=== PATIENT | male | born 1980 | race Caucasian/White ===

== ENCOUNTER 2018-10-25 07:31 | Emergency (ER) | payer OTHER ==
[~2018-10-25] VITALS: Ht 185.4 cm; Wt 79.4 kg
[2018-10-25 08:24] LABS: ABSOLUTE NEUTROPHILS 16.8 thou/uL (1.4-8.2); BASOPHILS 0.5 % (0.0-2.0); EOSINOPHILS 0.1 % (0.0-3.0); HEMATOCRIT 43.3 % (42.0-52.0); MCH 29.7 pg (26.0-34.0); MCHC 34.6 g/dL (28.0-37.0); MCV 85.9 fL (80.0-100.0); MONOCYTES 6.2 % (1.0-8.0); PLATELET COUNT 270 thou/uL (150-400); POLYS 85.2 % (36.0-66.0); RBC 5.04 mil/uL (4.50-6.00); RDW 14.5 % (10.5-14.5); WBC 19.7 thou/uL (4.0-11.0)
[2018-10-25] MEDS ORDERED: VENTOLIN HFA 1818 GM INH (08:26)
[2018-10-25] MEDS ORDERED: ALBUTEROL2.5 MG/0.5 INH (08:27)
[2018-10-25] MEDS ORDERED: DULERA 200 MCG/13 GM INH (08:28)
[2018-10-25] MEDS ORDERED: PROZAC10 MG PO (08:28)
[2018-10-25 08:33] LABS: ANION GAP 12 mmol/L (7-16); BUN 20 mg/dL (7-18); CALCIUM 9.7 mg/dL (8.5-10.1); CHLORIDE 98 mmol/L (98-107); CO2 24 mmol/L (21-32); GLUCOSE 148 mg/dL (74-106); POTASSIUM 3.7 mmol/L (3.5-5.1); SODIUM 134 mmol/L (136-145)
[2018-10-25 08:41] LABS: LIPASE 2425 U/L (73-393); SGOT 56 U/L (15-37); SGPT 50 U/L (30-65); TOTAL PROTEIN 7.4 g/dL (6.4-8.2); TROPONIN-I <0.06 ng/mL (<0.06)
[2018-10-25 09:58] LABS: URINE BILIRUBIN NEGATIVE (Negative); URINE BLOOD TRACE (Negative); URINE CLARITY CLEAR; URINE COLOR YELLOW; URINE GLUCOSE-RANDOM* NEGATIVE (Negative); URINE KETONES NEGATIVE (Negative); URINE LEUKOCYTES-REFLEX NEGATIVE (Negative); URINE NITRITE-REFLEX NEGATIVE (Negative); URINE PROTEIN (DIPSTICK) TRACE (Negative); URINE SPECIFIC GRAVITY 1.015 (1.005-1.035); URINE UROBILINOGEN 0.2 E.U./dl (0.2-1.0)
[2018-10-25] MEDS ORDERED: ZOFRAN ODT4 MG DISSOLVE (10:30)
[2018-10-25] MEDS ORDERED: TRAMADOL 50 MG50 MG PO (10:30)
[2018-10-25 11:31] VITALS: BP 152/74
--- NOTE | 2018-10-25 16:59 | EKG ---
[place] [address] [facility] [place] [address] ELECTROCARDIOGRAM REPORT Name: MARY GRACE HERMAN Room #: DEP Connie#: [id number] ������������������ Admission: 10/25/18 ������������������ Attend Phys: Discharge: 10/25/18 ������������������ Date of : 82 Report #: [id number] ����������������������������������������������������������������� [id number] THIS REPORT FOR: //name// [facility] ED Test Date: 2018-10-25 Test Time: 08:38:08 Pat Name: MARY GRACE HERMAN Department: Room: Gender: Investment Officer: TJOHKATIE : 1980 Requested By: Neal Dunn Order Number: [id number] MD: Sean Fernandez Measurements Intervals Vera Rate: 65 P: 55 MO: 121 QRS: 70 QRSD: 79 T: 68 QT: 404 QTc: 421 Interpretive Statements Sinus rhythm Sinus arrhythmia No previous ECG available for comparison Electronically Signed On 10-25-2018 16:59:16 CDT by Sean Fernandez [email or web address] ��������������������������������������������� <ELECTRONICALLY SIGNED> ���������������������������������������� By: Sean Fernandez MD, [facility] ��������������������������������������������� 10/25/18 1659 0838 0838 Sean Fernandez MD, FAC /EPI
== END 2018-10-25 11:05 | disposition home or self-care (01) ==
LOC: ER 07:31
PROVIDERS: Emergency Medicine
DX: K85.90 Acute pancreatitis without necrosis or infection, unspecified (principal); R11.2 Nausea with vomiting, unspecified; Z88.8 Allergy status to other drugs, medicaments and biological substances

== ENCOUNTER 2019-01-08 19:05 | Inpatient (IN) | payer OTHER ==
[~2019-01-08] VITALS: Ht 185.4 cm; Wt 86.6 kg
[~2019-01-08 19:05] MED LIST: ALBUTEROL2.5 MG/0.5 INH; DULERA 200 MCG/13 GM INH; PROZAC10 MG PO; TRAMADOL 50 MG50 MG PO; VENTOLIN HFA 1818 GM INH; ZOFRAN ODT4 MG DISSOLVE
[2019-01-08 19:25] VITALS: BP 149/81
[2019-01-08 21:30] VITALS: BP 148/104
[2019-01-08 22:40] LABS: HEMATOCRIT 41.2 % (42.0-52.0); HEMOGLOBIN 14.3 gm/dL (14.0-18.0); MCHC 34.8 g/dL (28.0-37.0); MCV 86.1 fL (80.0-100.0); RBC 4.78 mil/uL (4.50-6.00); RDW 13.7 % (10.5-14.5); WBC 10.6 thou/uL (4.0-11.0)
[2019-01-08 22:44] LABS: CALCIUM 8.3 mg/dL (8.5-10.1); CREATININE 0.9 mg/dL (0.7-1.3); POTASSIUM 4.2 mmol/L (3.5-5.1)
[2019-01-09 06:38] VITALS: BP 134/56
[2019-01-09 08:18] VITALS: BP 146/91
--- NOTE | 2019-01-09 09:53 | EKG ---
[address] [address] ELECTROCARDIOGRAM REPORT Name: MARY GRACE HERMAN Room #: 428-P ADM IN M.R.#: [id number] ������������������ Admission: 01/08/19 ������������������ Attend Phys: Garland Hernandez MD Discharge: ������������������ Date of : 82 Report #: [id number] ����������������������������������������������������������������� [id number] THIS REPORT FOR: //name// [facility] ED Test Date: 2019-01-08 Test Time: 22:09:39 Pat Name: MARY GRACE HERMAN Department: Room: 428 Gender: M Lacer And Tier: Kat De Leon : 1980 Requested By: Kenya Pascal Order Number: [id number] MD: Sean Fernandez Measurements Intervals [place] Rate: 90 P: 63 [place]: 142 QRS: 70 QRSD: 95 T: 73 QT: 361 QTc: 442 Interpretive Statements Sinus rhythm No significant abnormality Compared to ECG 10/25/2018 08:38:08 Sinus arrhythmia no longer present Electronically Signed On 01-09-2019 9:52:59 CDT by Sean Fernandez [email or web address] ��������������������������������������������� <ELECTRONICALLY SIGNED> ���������������������������������������� By: Sean Fernandez MD, [facility] ��������������������������������������������� 01/09/19 0952 08 08 Sean Fernandez MD, [facility] /EPI
--- NOTE | 2019-01-09 09:58 | NUR ---
PT RESTING IN BED ALERT XS 4. GIVEN BREAKFAST AND WILL DO ADMIT PAPERWORK AFTER HE EATS. GIRLFRIEND AT BEDSIDE.
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
[2019-01-09 17:54] VITALS: BP 137/81
[2019-01-09 21:15] VITALS: BP 135/73
--- NOTE | 2019-01-10 02:19 | NUR ---
ASSESSMENT COMPLETED.PT CONT WITH RT TX.PT ENCOURAGED TO USE HIS INCENTIVE SPIROMETER EVERY HOUR WHILE AWAKE.PT ON 4L/NC,SAT AT 93%.IV ABX ADMINISTERED.PT UP ADLIB IN ROOM.PT CONCERNED THAT HIS O2 SAT MIGHT DROP WHILE HE IS ASLEEP,02 SAT CHECKED WHILE PT AWAKE.HOME MEDS SENT DOWN TO PHARMACY,PT REMINDED TO GO DOWN TO PHARMACY TO PICK MED UP ON DISCAHRGE,VOICED UNDERSTANDING.PT RESTING IN HIS BED AT THIS TIME.CALL LIGHT WITHIN REACH.
[2019-01-10 04:15] VITALS: BP 145/79
[2019-01-10 09:07] LABS: HEMATOCRIT 43.3 % (42.0-52.0); HEMOGLOBIN 14.7 gm/dL (14.0-18.0); MCH 29.4 pg (26.0-34.0); MCHC 33.9 g/dL (28.0-37.0); MCV 86.7 fL (80.0-100.0); RDW 13.8 % (10.5-14.5); WBC 21.1 thou/uL (4.0-11.0)
--- NOTE | 2019-01-10 12:00 | NUR ---
ORDERS RECEIVED FOR EVAL AND TREAT. SPOKE WITH Pt WHO STATES HE HAS ALREADY BEEN UP WITHOUT DIFFICULTY. WANTING TO WALK IN HALLS WITH SIGNIFICANT OTHER. SPOKE WITH NURSING AND THEY STATE Pt HAS BEEN UP AD EMILEE. Pt TO AMBULATE ON HIS OWN AND IS DECLINING A FORMAL P.T. EVAL
--- NOTE | 2019-01-10 14:23 | NUR ---
ORDERS RECEIVED FOR OT EVALUATION. UPONE ENTRY TO THE ROOM. PATIENT STATED HE IS INDEP WITH ALL SELF CARE. WILL DISCHARGE
[2019-01-10 14:33] LABS: BE(vivo) -0.2 mmol/L (-2 to +3); HCO3 24.1 mmol/L (22.0-26.0); PCO2 38.6 mmHg (35.0-45.0); PO2 67.7 mmHg (80.0-100.0); pH 7.414 (7.360-7.450); sO2 93.8 % (92.0-98.0)
--- NOTE | 2019-01-10 15:27 | NUR ---
case discussed WITH DR HOPKINS THIS AM & HE IS CHECKING WITH THE PHARMACIST TO SEE IF THERE IS A SUBSTITUTE FOR DULERA. FOR DC PLANNING DME OR HOME CARE NEEDS CALL [phone].
[2019-01-10 16:16] VITALS: BP 123/73
--- NOTE | 2019-01-10 17:29 | NUR ---
PATIENT CARE WAS ASSUMED AT 0715.PATIENT IS ALERT AND ORIENTED X4.PATIENT IS ABLE TO AMBULATE ON HIS OWN.HAS NON-CARDIAC CHEST PAIN.PAIN MEDS ARE GIVEN EVERY 4 HOURS NEEDED.PT HAS NO OTHER COMPLAINS AT THIS TIME.CALL LIGHT, PHONE, AND PERSONAL BELONGINGS ARE WITHIN REACH.
[2019-01-10 19:37] VITALS: BP 155/68
--- NOTE | 2019-01-11 02:38 | NUR ---
PT C/O NON CARDIAC CHEST PAIN,MANAGED WITH MED.PT CONT ON STEROID ORDERED.PT CONT ON 3.5L/NC SAT AT 97%.PT GOT SHOWER AT HS.PT RESTING ON HIS BED AT THIS TIME.CALL LIGHT WITHIN REACH.
[2019-01-11 04:00] VITALS: BP 138/90
[2019-01-11 08:38] LABS: BE(vivo) 2.1 mmol/L (-2 to +3); PCO2 42.9 mmHg (35.0-45.0); PO2 65.6 mmHg (80.0-100.0); pH 7.416 (7.360-7.450); sO2 93.2 % (92.0-98.0)
[2019-01-11 08:44] VITALS: BP 133/71
[2019-01-11 09:32] LABS: HEMATOCRIT 42.5 % (42.0-52.0); HEMOGLOBIN 14.2 gm/dL (14.0-18.0); MCH 29.1 pg (26.0-34.0); MCHC 33.3 g/dL (28.0-37.0); MCV 87.5 fL (80.0-100.0); PLATELET COUNT 230 thou/uL (150-400); RBC 4.86 mil/uL (4.50-6.00); RDW 13.8 % (10.5-14.5); WBC 21.1 thou/uL (4.0-11.0)
[2019-01-11 10:02] LABS: ABSOLUTE NEUTROPHILS 19.4 thou/uL (1.4-8.2); ATYPICAL LYMPHS 3 %; PLATELET ESTIMATE NORMAL
--- NOTE | 2019-01-11 18:48 | NUR ---
ASSUMED CARE OF PT AT 0700. ASSESSMENT CHARTED. [address], BREATHING TX. PT S.O. REPORTED POSSIBLE SLEEP APNEA, PHYSICIAN NOTIFIED. NEW ORDER FOR NIGHT DESAT STUDY TONIGHT. C/O CHEST DISCOMFORT AND CHEST "POPPING", PAIN MEDS GIVEN ORDERED. PT UP AD EMILEE, STEADY GAIT. PT IN PROGRESSING TOWARDS GOALS.
[2019-01-11 20:25] VITALS: BP 143/79
[2019-01-12 04:37] VITALS: BP 154/98
--- NOTE | 2019-01-12 05:55 | NUR ---
Assumed pt care at 1900. Pt A/OX4,VSS. C/o non cardiac chest pain more so when coughing medicated per EMAR with partial relief reported. Up ad jaqui without difficulties. Voiding without dysuria. Nocturnal desat study done, on O2 @ 4L/NC. Resting without any distress noted. Will continue to monitor pt.
[2019-01-12 07:50] VITALS: BP 153/84
--- NOTE | 2019-01-12 15:18 | NUR ---
LEFT MESSAGE FOR [facility]UIL[facility] SAYING WE ANTICIPATE PT WILL BE READY FOR DC TOMORROW AND WILL NEED HOME 02 AND SERVICES.
--- NOTE | 2019-01-12 15:54 | NUR ---
Call back rec'd from Cole PENALOZA indicating in network dme providers for home o2 are [facility] and [facility]. [facility] is in network should hh be indicated. Pt declined PT/OT today as he is indep with self cares and ambulating in the hallway. He continues to need o2 with pulse ox at bedside and plans for a noc desat study tonight. Will check with the pt regarding any preference in providers. Anticipate need for home o2 setup at sd.
[2019-01-12 16:04] VITALS: BP 140/80
--- NOTE | 2019-01-12 16:15 | NUR ---
FAXED REFERRAL TO [facility] SPOKE WITH BETHANY IN INTAKE AND SHE RECEIVED REFERRAL DCP TO FAX SCRIPT AND RESULT OF REST/EXERCISE O2 SAT. DCP TO FOLLOW.
--- NOTE | 2019-01-12 19:41 | NUR ---
ASSUMED CARE OF PT AT 0700. ASSESSMENT CHARTED. A&O,X4. C/O NON CARDIAC CHEST PAIN AND COUGHING, SCHEDULED PAIN MEDS GIVEN ORDERED. [address] PT UP AD EMILEE WITH STEADY GAIT. PLAN FOR REPEAT NOCTURNAL SLEEP STUDY TONIGHT. S.O. VISITED AT BEDSIDE THIS EVENING. PT CALLS APPROPRIATELY. VSS. END OF SHIFT.
[2019-01-12 20:02] VITALS: BP 153/90
[2019-01-13 04:51] VITALS: BP 127/79
[2019-01-13 05:14] LABS: HEMATOCRIT 43.3 % (42.0-52.0); HEMOGLOBIN 14.7 gm/dL (14.0-18.0); MCH 29.5 pg (26.0-34.0); MCHC 33.9 g/dL (28.0-37.0); PLATELET COUNT 242 thou/uL (150-400); RBC 4.97 mil/uL (4.50-6.00); RDW 13.8 % (10.5-14.5); WBC 13.7 thou/uL (4.0-11.0)
[2019-01-13 05:57] LABS: ABSOLUTE NEUTROPHILS 11.1 thou/uL (1.4-8.2); PLATELET ESTIMATE NORMAL
--- NOTE | 2019-01-13 06:32 | NUR ---
ASSUMED CARE AT 1900, ASSESSMENT COMPLETED. PT REPORTS STERNAL PAIN BETWEEN 5-6, WORSE WITH COUGHING; GAVE CODEINE COUGH SYRUP AT HS TO REDUCE COUGHING-RELATED PAIN OVERNIGHT; GAVE ONE EXTRA DOSE NORCO OVERNIGHT IN ADDITION TO SCHEDULED PAIN MEDS. REDUCED O2 FROM 4L TO 2.5 DURING SHIFT REPORT TO SEE HOW PT SATTED, WITH VS HE WAS MID 90'S; RT TURNED HIM DOWN TO 1L AND HE STAYED AROUND 94%, BUT THEN PUT HIM ON RA FOR OVERNIGHT DESAT STUDY. PT WAS TYPICALLY AROUND 92% OVERNIGHT. IV IN LEFT WRIST CLOTTED OFF, PLACED NEW IV IN LEFT AC TO GIVE STEROIDS AND IV ABX. NO OTHER CONCERNS, WILL CONTINUE TO MONITOR.
[2019-01-13 07:39] VITALS: BP 128/86
[2019-01-13 08:06] LABS: BE(vivo) 1.4 mmol/L (-2 to +3); HCO3 25.3 mmol/L (22.0-26.0); PCO2 37.9 mmHg (35.0-45.0); PO2 61.1 mmHg (80.0-100.0); pH 7.442 (7.360-7.450); sO2 92.4 % (92.0-98.0)
[2019-01-13] MEDS ORDERED: LEVAQUIN 500 M500 M2 PO (13:07)
[2019-01-13] MEDS ORDERED: NORCO 5-325 TA1 EAC1 PO (13:07)
[2019-01-13] MEDS ORDERED: PREDNISONE 20 M20 MG PO (13:07)
[2019-01-13] MEDS ORDERED: CLARITIN10 M2 PO (13:07)
[2019-01-13] MEDS ORDERED: BENZONATATE100 MG PO (13:07)
[2019-01-13] MEDS ORDERED: IBUPROFEN 200200 M1 PO (13:07)
[2019-01-13] MEDS ORDERED: ACETAMINOPHEN325 M1 PO (13:07)
[2019-01-13] MEDS ORDERED: SYMBICORT160 MCG/4. INH (13:07)
[2019-01-13] MEDS ORDERED: GUAIFEN-CODEINE10 ML PO (13:07)
[2019-01-13 14:31] VITALS: BP 128/86
--- NOTE | 2019-01-13 16:15 | NUR ---
ASSUMED CARE OF PT AT 0700. ASSESSMENT CHARTED. A&O,X4. UP AD EMILEE. PT STABLE ON ROOM ROOM, RT PERFORMED EXERICSE O2 STUDY, NO HOME OXYGEN NEEDED. NEW DISCHARGE ORDERS FROM DR. HOPKINS. NEW SCRIPTS AND CARENOTES GIVEN. D/C INFORMATION GIVEN TO PT AT BEDSIDE. HOME MEDS FROM PHARMACY GIVEN TO PT. IV REMOVED, NO BLEEDING NOTED. IV ABX AND STERIOD NOT GIVEN PER DR. HOPKINS DUE TO PT DISCHARGE AND STARTING ORAL MEDS AT HOME. WAITING FOR FINANCE TO PICK PT UP. WILL CONTINUE TO MONITOR.
== END 2019-01-13 17:26 | disposition home or self-care (01) | DRG 193 ==
LOC: ER 19:05 → EROBS 22:04 → 4E 22:04
PROVIDERS: Nurse Practitioner Family; ADMIT Internal Medicine
DX: J18.9 Pneumonia, unspecified organism (principal); J96.01 Acute respiratory failure with hypoxia; S27.321A Contusion of lung, unilateral, initial encounter; R04.89 Hemorrhage from other sites in respiratory passages; J45.901 Unspecified asthma with (acute) exacerbation; J06.9 Acute upper respiratory infection, unspecified; J32.9 Chronic sinusitis, unspecified; Z79.899 Other long term (current) drug therapy; Z88.8 Allergy status to other drugs, medicaments and biological substances; Z23 Encounter for immunization; V89.2XXA Person injured in unspecified motor-vehicle accident, traffic, initial encounter; Y93.89 Activity, other specified; Y92.89 Other specified places as the place of occurrence of the external cause; Y99.8 Other external cause status
CPT/HCPCS: 10084; 10183